=== PATIENT | female | born 1975 | race Caucasian/White ===

== ENCOUNTER 2023-07-26 15:31 | Emergency (ER) | payer OTHER, MEDICARE, SELFPAY ==
[2023-07-26 15:43] VITALS: BP 163/99
[2023-07-26 16:14] LABS: % Basophils 0.4 % (0-2); % Eosinophils 0.1 % (0-6); % Immature Granulocytes 0.5 % (0-0.5); % Lymphocytes 25.4 % (20.5-51.1); % Monocytes 7.3 % (1.7-9.3); % Neutrophils 66.3 % (42.2-75.2); Absolute Basophils 0.1 10^3/uL (0-0.2); Absolute Immature Granulocytes 0.1 10^3/uL (0-0.05); Absolute Lymphocytes 3.6 10^3/uL (1.2-3.4); Absolute Neutrophils 9.3 10^3/uL (1.4-6.5); Hematocrit 37.1 % (37.0-47.0); Hemoglobin 11.1 g/dL (12.0-16.0); Mean Corp Hgb Conc. 29.9 g/dL (33.0-37.0); Mean Corpuscular Hgb 20.2 pg (27.0-31.0); Mean Corpuscular Volume 67.6 fL (81.0-99.0); Mean Platelet Volume 9.2 fL (7.4-10.4); Nucleated Red Blood Cells % 0 %; Platelet Count 345 10^3/uL (130-400); Red Blood Cell Count 5.49 10^6/uL (4.20-5.40); Red Cell Dist. Width 18.1 % (11.5-14.5); White Blood Cell Count 14.1 10^3/uL (4.8-10.8)
[2023-07-26 16:30] LABS: Urine Albumin Negative (Neg - Trace); Urine Bilirubin 1+ (Negative); Urine Character Slightly Cloudy (Clear); Urine Color Yellow; Urine Glucose Negative (Negative); Urine Ketone Trace (Negative); Urine Leukocyte 1+ (Negative); Urine Nitrite Negative (Negative); Urine Occult Blood Negative (Negative); Urine Specific Gravity 1.025 (<1.030); Urine Urobilinogen Negative (Neg - 1+)
[2023-07-26 16:33] LABS: ALT (SGPT) 14 U/L (0-35); AST (SGOT) 16 U/L (14-36); Albumin 3.9 g/dl (3.5-5.0); Alkaline Phosphatase 111 U/L (38-126); Blood Urea Nitrogen 11 mg/dl (7-17); Calcium 9.2 mg/dl (8.4-10.2); Carbon Dioxide 29 mmol/L (22-30); Chloride 103 mmol/L (98-107); Glucose 84 mg/dl (70-99); Lipase 69 U/L (23-300); Potassium 4.3 mmol/L (3.5-5.1); Sodium 135 mmol/L (135-145); Total Bilirubin 0.4 mg/dl (0.2-1.3); Total Protein 6.8 g/dl (6.3-8.2); eGFR > 60.00
[2023-07-26 16:38] LABS: Urine Bacteria Many (Negative); Urine Mucus Moderate; Urine Red Blood Cell 0-2 /HPF (0-2)
[2023-07-26 17:28] LABS: HCG, Serum Qualitative Screen Negative
--- NOTE | 2023-07-26 17:51 | ED.GENMED ---
History of Present Illness
General
Chief Complaint: Abdominal Symptoms
Time Seen by Provider: 07/26/23 17:47
Travel History
Have you had any contact with someone who has COVID-19?: No
Do you have any symptoms of coronavirus? Fever > 100 degrees, chills, cough, shortness of breath, sore throat, loss of taste or smell, muscle aches, or headache?: No
History of Present Illness
History of Present Illness:
HPI: Patient presents with abdominal pain more so on the lower abdomen. 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 She did have some nausea that started earlier in the day. She did not have any pain yesterday. She has had
no vomiting, diarrhea, or constipation.
EXAM:
GENERAL: The patient appears moderately uncomfortable
HEENT: Moist oral mucosa
CARDIOVASCULAR: No murmurs, normal heart rate and rhythm, No chest wall tenderness
PULMONARY: No respiratory distress, breath sounds are clear and equal
ABDOMEN: Soft with no peritoneal signs, lower abdominal tenderness tenderness, elevated BMI
NEUROLOGIC: Excellent strength all extremities, no coordination deficits
PSYCHIATRIC: Appropriate mental status, normal insight and judgement
EXTREMITIES: Nontender, no edema, moves all extremities equally
SKIN: No rash, no lesions
ED COURSE:
6:10 PM: I initially evaluated patient
NUMBER AND COMPLEXITY OF PROBLEMS ADDRESSED AT THE ENCOUNTER
� Chronic conditions affecting care: Hyperlipidemia, has had LINE DECORATOR shunt in the past, hysterectomy
� Acute Exacerbation and/or Progression of Chronic Illness: This is an acute problem
� Differential Diagnosis includes: IBS, appendicitis, cholecystitis less likely, UTI/pyelonephritis over the patient has no flank pain or CVA tenderness
AMOUNT AND/OR COMPLEXITY OF DATA TO BE REVIEWED AND ANALYZED
� I performed an independent evaluation of and my interpretation is:
EKG:
CT: CT imaging shows no acute abnormality
X-rays:
Laboratory Studies: White count 14.1, hemoglobin 11.1, hCG negative, LFTs and lipase are normal, urinalysis shows 11-15 white cells per high-power field and many bacteria noted
Other:
� Review of other/old records: Last white count that was checked in January 2023 was normal
� Clinical information was obtained by an independent historian: None needed
� Prescriptions/Medications Considered but not given:
� Further testing considered but not performed:
RISK OF COMPLICATIONS AND/OR MORBIDITY OR MORTALITY OF PATIENT MANAGEMENT
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
� Discussion with other providers:
� Escalation of care including admission/observation vs risk of discharge considered: The patient appears to be moderately uncomfortable on initial evaluation, her white count is elevated at 14.1, questionably abnormal urinalysis
but she has no urinary symptoms, unclear etiology obtain CT imaging. CT imaging unremarkable. The patient was given Toradol which did not help and then was given 2 rounds of 1 mg of Dilaudid. She appears somewhat more comfortable. No clear
indication for admission to the hospital. We talked about the possibly of a urinary tract infection as cause of her symptoms however she has no dysuria. Since she does have leukocytosis with ongoing pain, will start Bactrim. She does have a
penicillin allergy.
Past History
Past History
ED Past Medical History: Asthma, COPD, GERD, HTN, Hypercholesterolemia, Psychiatric (anxiety and depression. 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 Tachycardia,
inappropriate tachycardia,) and Other (Chronic headache,)
ED Past Surgical History: Brain (shunt-removed) and Gynecological (Hysterectomy)
Patient has exhibited threatening behavior?: No
PSI?: No
Social History
Tobacco: Smoker
Alcohol: None
Drug: Marijuana
Personal:
Living: with family
Employment: Not employed
Family History
Family History: Other (Mother with uterine cancer)
Phy Exam
Physical Exam
Physical Exam:
See HPI
Course
Orders/Labs/Results
Orders:
Orders
07/26/23 15:47
Test Result ONCE
07/26/23 16:03
Complete Blood Count/With Diff Urgent
Comprehensive Metabolic Panel Urgent
HCG, Serum Qualitative Screen Urgent
Lipase Urgent
Urine Culture Reflexed from UA [Urinalysis Reflex To Culture] Urgent
Date Specimen was Collected: 07/26/23
Time Specimen was Collected: 15:46
Urine Microscopic Reflex Cult Urgent
Urine Culture Urgent
ELIE Source: U
Specimen Description:
Date Specimen was Collected: 07/26/23
Time Specimen was Collected: 15:46
07/26/23 18:12
CT Abd/pelvis W Iv Cont Urgent
Comment:
Reason For Exam: lower abd pain severe
0.9% Sodium Chloride 1000 ml [Nss] 1,000 ml IV BOLUS
Ketorolac [Toradol] 15 mg IV NOW STA
Ondansetron Injectable [Zofran] 4 mg IV NOW STA
07/26/23 18:51
HYDROmorphone [Dilaudid] 1 mg IV NOW STA
07/26/23 20:41
HYDROmorphone [Dilaudid] 1 mg .ROUTE .STK-MED ONE
07/26/23 20:48
HYDROmorphone [Dilaudid] 1 mg IV NOW STA
07/26/23 21:20
Sulfamethox./Trimethoprim Ds [Bactrim Ds 800 mg/160 mg] 1 tablet PO NOW STA
Abnormal Lab Results
07/26/23
16:03
WBC 14.1 H 10^3/uL
(4.8-10.8)
RBC 5.49 H 10^6/uL
(4.20-5.40)
Hgb 11.1 L g/dL
(12.0-16.0)
MCV 67.6 L fL
(81.0-99.0)
MCH 20.2 L pg
(27.0-31.0)
MCHC 29.9 L g/dL
(33.0-37.0)
RDW 18.1 H %
(11.5-14.5)
Abs Immat Gran (auto) 0.1 H 10^3/uL
(0-0.05)
Absolute Neuts (auto) 9.3 H 10^3/uL
(1.4-6.5)
Absolute Lymphs (auto) 3.6 H 10^3/uL
(1.2-3.4)
Absolute Monos (auto) 1.0 H 10^3/uL
(0.1-0.6)
Urine Ketones Trace A
(Negative)
Urine Bilirubin 1+ A
(Negative)
Leukocyte Esterase Rfl 1+ A
(Negative)
Urine WBC (Reflex) 11-15 A /HPF
(0-5)
Urine Bacteria (Reflex) Many A
(Negative)
07/26/23 16:03
07/26/23 16:03
Vital Signs
Initial and Last Documented VS:
Initial Vital Signs
Temp Pulse Resp BP Pulse Ox
98.2 F 100 20 163/99 98
07/26/23 15:43 07/26/23 15:43 07/26/23 15:43 07/26/23 15:43 07/26/23 15:43
Last Documented Vital Signs
Temp Pulse Resp BP Pulse Ox
98.5 F 96 20 121/80 94
07/26/23 20:44 07/26/23 20:44 07/26/23 20:44 07/26/23 20:44 07/26/23 20:53
*Critical Care Note
Total Time (30-74mins, 75-104mins- exclusive of procedures): Not Applicable
ED Attending Note
-
Portions of this chart may have been created with voice recognition software.� Occasional wrong word or��sound alike� substitutions may have occurred due to the inherent limitations of voice recognition software.
Discharge Plan
Departure
Patient Disposition: Home (Routine Discharge)
Date of Disposition: 07/26/23
Time of Disposition: 21:19
Patient with high blood pressure during this ER visit?: Yes
Discharge Problem:
Abdominal pain
Prescriptions:
New
sulfamethoxazole-trimethoprim [Bactrim DS] 800-160 mg tablet
1 tab PO BID Qty: 14 0RF
No Action
omeprazole 40 MG capsule,delayed release(DR/EC)
40 mg PO DAILY Qty: 0 0RF
Rx Instructions:
One capsule by mouth once daily.
metoprolol succinate 25 MG tablet extended release 24 hr
25 mg PO DAILY@1200 Qty: 0 0RF
Rx Instructions:
One tab by mouth once daily.
duloxetine 60 MG capsule,delayed release(DR/EC)
60 mg PO BID Qty: 0 0RF
Rx Instructions:
One capsule by mouth twice daily.
Vraylar 1.5 MG capsule
3 mg PO DAILY
clonazepam 0.5 MG tablet
0.5 mg PO BIDPRN PRN (Reason: Anxiety)
Patient Comments:
lamotrigine [Lamictal] 150 MG tablet
150 mg PO DAILY
benztropine 1 MG tablet
2 mg PO DAILY
metaxalone [Skelaxin] 800 MG tablet
800 mg PO TIDPRN PRN (Reason: pain) Qty: 10 0RF
fluticasone propionate [Flovent HFA] 1 PUFF HFA aerosol inhaler
2 puff inhalation R BID Qty: 1 0RF
albuterol sulfate 90 mcg/actuation aerosol powdr breath activated
2 inh inhalation Q6H PRN (Reason: shortness of breath or wheezing) Qty: 1 0RF
prednisone 10 mg Tablet
See Rx Instructions .ROUTE .COMPLEX Qty: 30 0RF
Rx Instructions:
Take By Mouth:
40 mg daily x3 days, 30 mg daily x3 days,
20 mg daily x3 days, 10 mg daily x3 days.
gabapentin
100 mg PO TID
Referrals:
Cammie Canas MD [Family Provider] -
Interventions
Interventions:
*Risk Screen - Suicide Last Done: 07/26/23 15:43
*General Assessment Last Done: 07/26/23 15:43
*Neglect/Abuse Screening Last Done: 07/26/23 15:43
ED- Fall Risk Assessment Last Done: 07/26/23 19:00
*ED COVID-19 Vaccine History Last Done: 07/26/23 19:00
VB-[id number] Assessment Last Done: 07/26/23 19:14
[2023-07-26] MEDS: TORADOL 15 MG IV (18:32)
[2023-07-26] MEDS: ZOFRAN 4 MG IV (18:33)
[2023-07-26] MEDS: NSS 1000 IV (18:33)
[2023-07-26] MEDS: DILAUDID 1 MG IV ×2 (19:01→20:48)
[2023-07-26 19:14] VITALS: BP 116/65; BMI 46.6
[2023-07-26 20:09] VITALS: BP 108/68
[2023-07-26 20:44] VITALS: BP 121/80
[2023-07-26] MEDS: BACTRIM DS 800 MG/160 MG 1 TABLET PO (21:52)
[2023-07-26 21:54] VITALS: BP 114/60
== END 2023-07-26 21:00 | disposition home or self-care (01) ==
LOC: EMR 15:31
PROVIDERS: Emergency Medicine; EMERGENCY PHYSICIAN Emergency Medicine; FAMILY PHYSICIAN Family Medicine
DX: R10.9 Unspecified abdominal pain (principal); J44.89 Other specified chronic obstructive pulmonary disease; K21.9 Gastro-esophageal reflux disease without esophagitis; I10 Essential (primary) hypertension; E78.00 Pure hypercholesterolemia, unspecified; F41.9 Anxiety disorder, unspecified; F32.A Depression, unspecified; G93.2 Benign intracranial hypertension; F17.200 Nicotine dependence, unspecified, uncomplicated; Z88.0 Allergy status to penicillin; Z91.51 Personal history of suicidal behavior; Z98.2 Presence of cerebrospinal fluid drainage device
CPT/HCPCS: 99284; 96374; 96375; 96376; 96361; 74177; 80053; 81003; 81015; 83690; 84703; 85025; 87086; Q9967

== ENCOUNTER 2023-08-05 13:14 | Emergency (ER) | payer OTHER, MEDICARE, SELFPAY ==
[2023-08-05 13:26] VITALS: BP 128/92
[2023-08-05 13:55] LABS: % Basophils 0.3 % (0-2); % Eosinophils 0.1 % (0-6); % Immature Granulocytes 0.5 % (0-0.5); % Lymphocytes 14.6 % (20.5-51.1); % Monocytes 4.1 % (1.7-9.3); % Neutrophils 80.4 % (42.2-75.2); Absolute Immature Granulocytes 0.1 10^3/uL (0-0.05); Absolute Lymphocytes 1.8 10^3/uL (1.2-3.4); Absolute Monocytes 0.5 10^3/uL (0.1-0.6); Absolute Neutrophils 9.7 10^3/uL (1.4-6.5); Hematocrit 36.7 % (37.0-47.0); Hemoglobin 10.9 g/dL (12.0-16.0); Mean Corp Hgb Conc. 29.7 g/dL (33.0-37.0); Mean Corpuscular Volume 67.2 fL (81.0-99.0); Mean Platelet Volume 9.2 fL (7.4-10.4); Nucleated Red Blood Cells % 0 %; Platelet Count 362 10^3/uL (130-400); Red Blood Cell Count 5.46 10^6/uL (4.20-5.40); Red Cell Dist. Width 19.4 % (11.5-14.5); White Blood Cell Count 12.1 10^3/uL (4.8-10.8)
[2023-08-05 13:56] LABS: Urine Albumin Negative (Neg - Trace); Urine Bilirubin Negative (Negative); Urine Character Clear (Clear); Urine Color Yellow; Urine Glucose Negative (Negative); Urine Ketone Negative (Negative); Urine Leukocyte Negative (Negative); Urine Nitrite Negative (Negative); Urine Occult Blood Negative (Negative); Urine Specific Gravity 1.015 (<1.030); Urine Urobilinogen Negative (Neg - 1+)
[2023-08-05 14:08] LABS: ALT (SGPT) 19 U/L (0-35); AST (SGOT) 18 U/L (14-36); Albumin 4.1 g/dl (3.5-5.0); Alkaline Phosphatase 103 U/L (38-126); Blood Urea Nitrogen 11 mg/dl (7-17); Calcium 9.5 mg/dl (8.4-10.2); Carbon Dioxide 25 mmol/L (22-30); Chloride 105 mmol/L (98-107); Glucose 164 mg/dl (70-99); Potassium 4.2 mmol/L (3.5-5.1); Sodium 136 mmol/L (135-145); Total Bilirubin 0.3 mg/dl (0.2-1.3); Total Protein 6.8 g/dl (6.3-8.2); eGFR > 60.00
--- NOTE | 2023-08-05 16:17 | ED.GENMED ---
History of Present Illness
General
Chief Complaint: Back Pain
Source: patient
Exam Limitations: none
Time Seen by Provider: 08/05/23 16:16
Nursing documentation reviewed up to this point in time: agreed with
Travel History
Have you had any contact with someone who has COVID-19?: No
Do you have any symptoms of coronavirus? Fever > 100 degrees, chills, cough, shortness of breath, sore throat, loss of taste or smell, muscle aches, or headache?: No
History of Present Illness
History of Present Illness:
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 No recollection of overuse or injury. It is worse with movement. She took ibuprofen, Tylenol and medical marijuana with
little relief. She states the pain is constant and is 8/10. She states she has been vomiting also due to the pain. Her last emesis was 2 hours ago. She still feels nauseous. She denies UTI symptoms, denies constipation.
Past History
Past History
ED Past Medical History: Asthma, COPD, GERD, HTN, Hypercholesterolemia, Psychiatric (anxiety and depression. 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 Tachycardia,
inappropriate tachycardia,) and Other (Chronic headache,)
ED Past Surgical History: Brain (shunt-removed) and Gynecological (Hysterectomy)
Patient has exhibited threatening behavior?: No
PSI?: No
Social History
Tobacco: Smoker
Alcohol: None
Drug: Marijuana
Personal:
Living: with family
Employment: Not employed
Family History
Family History: Other (Mother with uterine cancer)
Review of Systems
Review of Systems
Allergies reviewed?: Yes
All Other Systems: ROS reviewed and negative except as documented in HPI and ROS
Constitutional: Denies fever
Respiratory: Denies trouble breathing
Cardiac: Denies chest pain
ABD/GI: Reports nausea; Denies abdominal pain, diarrhea or constipated
: Denies dysuria, frequency, flank pain, difficulty voiding, urgency, bleeding or dark urine
Musculoskeletal: Reports other (Pain right upper mid to lateral buttock area); Denies edema
Skin: Reports no symptoms
Neurological: Reports no symptoms
Phy Exam
Physical Exam
Physical Exam:
GENERAL: No acute distress. A&Ox3.
CONSTITUTIONAL: Afebrile.
RESPIRATORY: Regular respirations, nonlabored, lungs clear.
CARDIOVASCULAR: Regular rate and rhythm, no murmurs, no rubs.
GI: Soft, obese, nontender, normal BS
MUSCULOSKELETAL: Palpation over right upper mid to lateral buttock immediately reproduces her pain. Pain is worse with right straight leg raise and movement such as sitting forward swinging her legs over the side of the stretcher to sit on the edge
of the stretcher. Moves with ease. Well perfused.
SKIN: Warm, dry, pink
PSYCH: Normal mood and affect. Well kept, interactive and appropriate
NEUROLOGIC: Awake, alert and oriented. No focal neurological deficits
Course
Orders/Labs/Results
Orders:
Orders
08/05/23 13:41
Complete Blood Count/With Diff Urgent
Comprehensive Metabolic Panel Urgent
TSH Urgent
Comment: ADD ON
Urinalysis Reflex To Culture Urgent
Date Specimen was Collected: 08/05/23
Time Specimen was Collected: 13:28
08/05/23 16:35
Ondansetron Orally Disint [Zofran Odt (Orally Disintegrating)] 4 mg PO NOW STA
Abnormal Lab Results
08/05/23
13:41
WBC 12.1 H 10^3/uL
(4.8-10.8)
RBC 5.46 H 10^6/uL
(4.20-5.40)
Hgb 10.9 L g/dL
(12.0-16.0)
Hct 36.7 L %
(37.0-47.0)
MCV 67.2 L fL
(81.0-99.0)
MCH 20.0 L pg
(27.0-31.0)
MCHC 29.7 L g/dL
(33.0-37.0)
RDW 19.4 H %
(11.5-14.5)
Abs Immat Gran (auto) 0.1 H 10^3/uL
(0-0.05)
Absolute Neuts (auto) 9.7 H 10^3/uL
(1.4-6.5)
Neutrophils % 80.4 H %
(42.2-75.2)
Lymphocytes % 14.6 L %
(20.5-51.1)
Glucose 164 H mg/dl
(70-99)
08/05/23 13:41
08/05/23 13:41
Vital Signs
Initial and Last Documented VS:
Initial Vital Signs
Temp Pulse Resp BP Pulse Ox
98.0 F 105 16 128/92 98
08/05/23 13:26 08/05/23 13:26 08/05/23 13:08/05/23 13:08/05/23 13:26
Last Documented Vital Signs
Temp Pulse Resp BP Pulse Ox
98.0 F 105 16 128/92 98
08/05/23 13:26 08/05/23 13:26 08/05/23 13:26 08/05/23 13:08/05/23 13:26
MDM/Problems Addressed
Differential Diagnosis Includes:
Back muscle strain, sciatica, sacroiliitis
MDM/Problems Addressed:
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 No recollection of overuse or injury. It is worse with movement. She took ibuprofen, Tylenol and medical marijuana with
little relief. She states the pain is constant and is 8/10. She states she has been vomiting also due to the pain. Her last emesis was 2 hours ago. She still feels nauseous. She denies UTI symptoms, denies constipation.
There is no direct trauma, no indication for imaging.
Pain is immediately reproduced with pressure over the upper mid to right buttocks
This is clearly musculoskeletal pain. Prescription for cyclobenzaprine sent to her pharmacy.
Reviewed previous EKGs, no long QT, will send a short regimen of Zofran to use as needed for nausea.
Note given for off work tomorrow.
Patient ambulated out with normal gait upon discharge
*Critical Care Note
Total Time (30-74mins, 75-104mins- exclusive of procedures): Not Applicable
ED Attending Note
-
Portions of this chart may have been created with voice recognition software.� Occasional wrong word or��sound alike� substitutions may have occurred due to the inherent limitations of voice recognition software.
Discharge Plan
Departure
Patient Disposition: Home (Routine Discharge)
Date of Disposition: 08/05/23
Time of Disposition: 16:39
Patient with high blood pressure during this ER visit?: No
Condition: Good
Discharge Problem:
Acute low back pain
Instructions: Low Back Pain (DC), Sacroiliac Joint Pain (DC)
Prescriptions:
New
cyclobenzaprine 10 mg tablet
10 mg PO TID PRN (Reason: low back/buttock pain) Qty: 30 0RF
ondansetron 4 mg tablet,disintegrating
4 mg PO Q8H PRN (Reason: nausea and vomiting) 5 Days Qty: 10 0RF
No Action
omeprazole 40 MG capsule,delayed release(DR/EC)
40 mg PO DAILY Qty: 0 0RF
Rx Instructions:
One capsule by mouth once daily.
metoprolol succinate 25 MG tablet extended release 24 hr
25 mg PO DAILY@1200 Qty: 0 0RF
Rx Instructions:
One tab by mouth once daily.
duloxetine 60 MG capsule,delayed release(DR/EC)
60 mg PO BID Qty: 0 0RF
Rx Instructions:
One capsule by mouth twice daily.
Vraylar 1.5 MG capsule
3 mg PO DAILY
clonazepam 0.5 MG tablet
0.5 mg PO BIDPRN PRN (Reason: Anxiety)
Patient Comments:
lamotrigine [Lamictal] 150 MG tablet
150 mg PO DAILY
benztropine 1 MG tablet
2 mg PO DAILY
metaxalone [Skelaxin] 800 MG tablet
800 mg PO TIDPRN PRN (Reason: pain) Qty: 10 0RF
fluticasone propionate [Flovent HFA] 1 PUFF HFA aerosol inhaler
2 puff inhalation R BID Qty: 1 0RF
albuterol sulfate 90 mcg/actuation aerosol powdr breath activated
2 inh inhalation Q6H PRN (Reason: shortness of breath or wheezing) Qty: 1 0RF
prednisone 10 mg Tablet
See Rx Instructions .ROUTE .COMPLEX Qty: 30 0RF
Rx Instructions:
Take By Mouth:
40 mg daily x3 days, 30 mg daily x3 days,
20 mg daily x3 days, 10 mg daily x3 days.
gabapentin
100 mg PO TID
sulfamethoxazole-trimethoprim [Bactrim DS] 800-160 mg tablet
1 tab PO BID Qty: 14 0RF
Referrals:
Cammie Canas MD [Family Provider] - As needed
Stand Alone Forms: Return to Work
Activity Restrictions/Additional Instructions:
As we discussed, you may have pulled a muscle in your lower back or strained the sacroiliac joint in your pelvis. Tylenol or ibuprofen as needed for pain. Use the Flexeril (cyclobenzaprine) as needed for pain, muscle spasms. This can make you
sleepy and slow the reflexes so do not drive or operate any machinery within 8 hours of taking it.
I sent a prescription for the Flexeril and also for Zofran to use as needed for nausea to your pharmacy.
See your doctor in 3 to 4 days if no improvement in your symptoms
Interventions
Interventions:
*Risk Screen - Suicide Last Done: 08/05/23 17:16
*General Assessment Last Done: 08/05/23 16:44
*Neglect/Abuse Screening Last Done: 08/05/23 17:16
ED- Fall Risk Assessment Last Done: 08/05/23 17:16
*ED COVID-19 Vaccine History Last Done: 08/05/23 13:26
*Nursing Disposition Last Done: 08/05/23 17:16
ED-Musculoskeletal Assessment Last Done: 08/05/23 16:45
Discharge Date and Time
Discharge Date/Time: 08/05/23 17:17
[2023-08-05] MEDS: ZOFRAN ODT (ORALLY DISINTEGRATING) 4 MG PO (16:43)
[2023-08-05 16:44] VITALS: BMI 46.2
[2023-08-05 17:52] LABS: TSH 0.97 uIU/ml (0.47-4.68)
== END 2023-08-05 17:17 | disposition home or self-care (01) ==
LOC: EMR 13:14
PROVIDERS: Emergency Medicine; EMERGENCY PHYSICIAN Emergency Medicine; FAMILY PHYSICIAN Family Medicine
DX: M54.50 Low back pain, unspecified (principal); F17.200 Nicotine dependence, unspecified, uncomplicated; E78.00 Pure hypercholesterolemia, unspecified; J44.89 Other specified chronic obstructive pulmonary disease; K21.9 Gastro-esophageal reflux disease without esophagitis; F41.9 Anxiety disorder, unspecified; F32.A Depression, unspecified; I10 Essential (primary) hypertension
CPT/HCPCS: 99283; 80053; 81003; 84443; 85025

== ENCOUNTER 2023-08-15 07:55 | Emergency (ER) | payer OTHER, MEDICARE, SELFPAY ==
[2023-08-15 08:03] VITALS: BP 159/96
--- NOTE | 2023-08-15 08:50 | ED.GENMED ---
History of Present Illness
General
Chief Complaint: Abdominal Symptoms
Source: patient
Exam Limitations: none
Time Seen by Provider: 08/15/23 08:35
Nursing documentation reviewed up to this point in time: agreed with
Travel History
Have you had any contact with someone who has COVID-19?: No
Do you have any symptoms of coronavirus? Fever > 100 degrees, chills, cough, shortness of breath, sore throat, loss of taste or smell, muscle aches, or headache?: No
History of Present Illness
History of Present Illness:
47-year-old female presents emerged from complaining of epigastric pain, since 10 PM last night. She states she had vomited multiple times. She denies any similar pain to this.
Past History
Past History
ED Past Medical History: Asthma, COPD, GERD, HTN, Hypercholesterolemia, Psychiatric (anxiety and depression. 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 Tachycardia,
inappropriate tachycardia,) and Other (Chronic headache,)
ED Past Surgical History: Brain (shunt-removed) and Gynecological (Hysterectomy)
Patient has exhibited threatening behavior?: No
PSI?: No
Social History
Tobacco: Smoker
Alcohol: None
Drug: Marijuana
Personal:
Living: with family
Employment: Not employed
Family History
Family History: Other (Mother with uterine cancer)
Review of Systems
Review of Systems
Allergies reviewed?: Yes
All Other Systems: Not applicable
Constitutional: Reports no symptoms
EENT: Reports no symptoms
Respiratory: Reports no symptoms
Cardiac: Reports no symptoms
ABD/GI: Reports abdominal pain, nausea and vomiting; Denies diarrhea, bloody stools or black stools
: Reports no symptoms
Musculoskeletal: Reports no symptoms
Skin: Reports no symptoms
Neurological: Reports no symptoms
Endocrine: Reports no symptoms
Hematologic/Lymphatic: Reports no symptoms
Psychiatric: Reports no symptoms
Phy Exam
Physical Exam
Physical Exam:
Physical Exam
General: no apparent distress, not acutely ill
Neck: supple. no meningeal signs. normal posterior pharynx
Heart: s1/s2 regular rate and rhythm, no murmur. equal radial
pulses.
HEENT: Pupils equal round reactive to light, EOMI
Lungs: no acute respiratory distress. clear bilaterally
Abdomen: normal bowel sounds. Diffuse tenderness, no rebound or guarding. No CVAT
Neuro: alert and oriented. no focal neurological deficits cranial nerves II through XII intact
Skin: no rash
Psychiatric: well kept. interactive and cooperative
Extremities: no edema. no calf tenderness. negative homans. good distal pulses
Course
Orders/Labs/Results
Orders:
Orders
08/15/23 08:48
IV Insert/Care/Rem.- Treatment PRN
0.9% Sodium Chloride 1000 ml [Nss] 1,000 ml IV BOLUS
Ondansetron Injectable [Zofran] 4 mg IV NOW STA
08/15/23 08:49
Test Result ONCE
08/15/23 09:00
Complete Blood Count/With Diff Urgent
Comprehensive Metabolic Panel Urgent
HCG, Serum Qualitative Screen Urgent
Comment: HCG QUALITATIVE SERUM ADDED ON BY FLOOR 9:45AM 08-15-23
Lipase Urgent
Urinalysis Reflex To Culture Urgent
Date Specimen was Collected: 08/15/23
Time Specimen was Collected: 08:59
08/15/23 09:02
Ketorolac [Toradol] 15 mg IV NOW STA
08/15/23 09:45
Add On- LAB Urgent
Tests Added?: HCG qualitative serum
08/15/23 09:54
Dicyclomine [Bentyl] 20 mg PO NOW STA
08/15/23 10:00
Capsaicin [Zostrix 0.025% Cream] See Dose Instructions TOPICAL STAT STA
08/15/23 10:30
CT Abd/pelvis W Iv Cont Urgent
Comment:
Reason For Exam: diffuse abdominal pain, vomiting
08/15/23 12:08
HYDROmorphone [Dilaudid] 1 mg IV NOW STA
Abnormal Lab Results
08/15/23
09:00
Hgb 10.6 L g/dL
(12.0-16.0)
Hct 35.9 L %
(37.0-47.0)
MCV 67.7 L fL
(81.0-99.0)
MCH 20.0 L pg
(27.0-31.0)
MCHC 29.5 L g/dL
(33.0-37.0)
RDW 19.4 H %
(11.5-14.5)
Abs Immat Gran (auto) 0.1 H 10^3/uL
(0-0.05)
Absolute Neuts (auto) 7.3 H 10^3/uL
(1.4-6.5)
Lymphocytes % 19.2 L %
(20.5-51.1)
Creatinine 0.5 L mg/dL
(0.6-1.0)
Glucose 114 H mg/dl
(70-99)
08/15/23 09:00
08/15/23 09:00
Vital Signs
Initial and Last Documented VS:
Initial Vital Signs
Temp Pulse Resp BP Pulse Ox
99.5 F 111 18 159/96 98
08/15/23 08:03 08/15/23 08:03 08/15/23 08:03 08/15/23 08:03 08/15/23 08:03
Last Documented Vital Signs
Temp Pulse Resp BP Pulse Ox
99.5 F 92 18 128/84 98
08/15/23 08:03 08/15/23 10:00 08/15/23 10:00 08/15/23 12:29 08/15/23 08:03
MDM/Problems Addressed
Differential Diagnosis Includes:
Bowel obstruction, diverticulitis, appendicitis
MDM/Problems Addressed:
47-year-old female with abdominal pain, nausea vomiting. No acute findings on CT abdomen pelvis. Symptoms possibly related to marijuana use. Stable for discharge.
Chronic conditions affecting care: Previous abdomnial surgery (Hysterectomy)
Acute Exacerbation and/or Progression of Chronic Illness:
Chronic marijuana use
*Radiology
Radiology exam reviewed: radiology read reviewed (CT abdomen pelvis no acute findings)
*Pulse Oximetry
Patient hypoxic: no
*EKG
Interpreted by ED Provider?: NA
*Candlemaker Interpretation
Rate: Candlemaker- N/A
*Critical Care Note
Total Time (30-74mins, 75-104mins- exclusive of procedures): Not Applicable
Data Reviewed
Review of Other/Old Records Reveals: Labs
Patient Management
Social determinants of health affecting care: Living situation and Strong social support
Escalation/DeEscalation of care consider admission/obs:
Admit not indicated
ED Attending Note
-
Portions of this chart may have been created with voice recognition software.� Occasional wrong word or��sound alike� substitutions may have occurred due to the inherent limitations of voice recognition software.
Discharge Plan
Departure
Patient Disposition: Home (Routine Discharge)
Date of Disposition: 08/15/23
Time of Disposition: 13:36
Patient with high blood pressure during this ER visit?: Yes
Condition: Good
Discharge Problem:
Abdominal pain, Nausea and vomiting
Instructions: Nausea and Vomiting, Adult (DC), Abdominal Pain, BLOOD PRESSURE
Prescriptions:
New
ondansetron 4 mg tablet,disintegrating
4 mg PO Q8H PRN (Reason: nausea and vomiting) 2 Days Qty: 6 0RF
dicyclomine 10 mg capsule
10 mg PO QID PRN (Reason: abdominal pain) Qty: 30 0RF
No Action
omeprazole 40 MG capsule,delayed release(DR/EC)
40 mg PO DAILY Qty: 0 0RF
Rx Instructions:
One capsule by mouth once daily.
metoprolol succinate 25 MG tablet extended release 24 hr
25 mg PO DAILY@1200 Qty: 0 0RF
Rx Instructions:
One tab by mouth once daily.
duloxetine 60 MG capsule,delayed release(DR/EC)
60 mg PO BID Qty: 0 0RF
Rx Instructions:
One capsule by mouth twice daily.
Vraylar 1.5 MG capsule
3 mg PO DAILY
clonazepam 0.5 MG tablet
0.5 mg PO BIDPRN PRN (Reason: Anxiety)
Patient Comments:
lamotrigine [Lamictal] 150 MG tablet
150 mg PO DAILY
benztropine 1 MG tablet
2 mg PO DAILY
metaxalone [Skelaxin] 800 MG tablet
800 mg PO TIDPRN PRN (Reason: pain) Qty: 10 0RF
fluticasone propionate [Flovent HFA] 1 PUFF HFA aerosol inhaler
2 puff inhalation R BID Qty: 1 0RF
albuterol sulfate 90 mcg/actuation aerosol powdr breath activated
2 inh inhalation Q6H PRN (Reason: shortness of breath or wheezing) Qty: 1 0RF
prednisone 10 mg Tablet
See Rx Instructions .ROUTE .COMPLEX Qty: 30 0RF
Rx Instructions:
Take By Mouth:
40 mg daily x3 days, 30 mg daily x3 days,
20 mg daily x3 days, 10 mg daily x3 days.
gabapentin
100 mg PO TID
sulfamethoxazole-trimethoprim [Bactrim DS] 800-160 mg tablet
1 tab PO BID Qty: 14 0RF
cyclobenzaprine 10 mg tablet
10 mg PO TID PRN (Reason: low back/buttock pain) Qty: 30 0RF
ondansetron 4 mg tablet,disintegrating
4 mg PO Q8H PRN (Reason: nausea and vomiting) 5 Days Qty: 10 0RF
Referrals:
Cammie Canas MD [Family Provider] -
Isidra Rossi DO [Active] - Call in 1-3 days for appt
Interventions
Interventions:
*Risk Screen - Suicide Last Done: 08/15/23 09:09
*General Assessment Last Done: 08/15/23 09:09
*Neglect/Abuse Screening Last Done: 08/15/23 09:09
ED- Fall Risk Assessment Last Done: 08/15/23 09:08
*ED COVID-19 Vaccine History Last Done: 08/15/23 08:08
BH-[id number] Assessment Last Done: 08/15/23 09:08
[2023-08-15] MEDS: ZOFRAN 4 MG IV (08:57)
[2023-08-15] MEDS: NSS 1000 IV (08:57)
[2023-08-15 09:01] VITALS: BP 132/90
[2023-08-15] MEDS: TORADOL 15 MG IV (09:06)
[2023-08-15 09:12] LABS: % Basophils 0.5 % (0-2); % Eosinophils 0.7 % (0-6); % Immature Granulocytes 0.5 % (0-0.5); % Lymphocytes 19.2 % (20.5-51.1); % Monocytes 6.4 % (1.7-9.3); % Neutrophils 72.7 % (42.2-75.2); Absolute Basophils 0.1 10^3/uL (0-0.2); Absolute Eosinophils 0.1 10^3/uL (0-0.7); Absolute Immature Granulocytes 0.1 10^3/uL (0-0.05); Absolute Lymphocytes 1.9 10^3/uL (1.2-3.4); Absolute Monocytes 0.6 10^3/uL (0.1-0.6); Absolute Neutrophils 7.3 10^3/uL (1.4-6.5); Hematocrit 35.9 % (37.0-47.0); Hemoglobin 10.6 g/dL (12.0-16.0); Mean Corp Hgb Conc. 29.5 g/dL (33.0-37.0); Mean Corpuscular Volume 67.7 fL (81.0-99.0); Mean Platelet Volume 9.3 fL (7.4-10.4); Nucleated Red Blood Cells % 0 %; Platelet Count 328 10^3/uL (130-400); Red Cell Dist. Width 19.4 % (11.5-14.5)
[2023-08-15 09:21] LABS: Urine Albumin Negative (Neg - Trace); Urine Bilirubin Negative (Negative); Urine Character Clear (Clear); Urine Color Yellow; Urine Glucose Negative (Negative); Urine Ketone Negative (Negative); Urine Leukocyte Negative (Negative); Urine Nitrite Negative (Negative); Urine Occult Blood Negative (Negative); Urine Urobilinogen Negative (Neg - 1+)
[2023-08-15 09:25] LABS: ALT (SGPT) 20 U/L (0-35); AST (SGOT) 19 U/L (14-36); Albumin 3.9 g/dl (3.5-5.0); Alkaline Phosphatase 105 U/L (38-126); Blood Urea Nitrogen 9 mg/dl (7-17); Calcium 9.3 mg/dl (8.4-10.2); Carbon Dioxide 27 mmol/L (22-30); Chloride 105 mmol/L (98-107); Glucose 114 mg/dl (70-99); Lipase 51 U/L (23-300); Potassium 4.4 mmol/L (3.5-5.1); Sodium 137 mmol/L (135-145); Total Bilirubin 0.3 mg/dl (0.2-1.3); Total Protein 6.7 g/dl (6.3-8.2); eGFR > 60.00
[2023-08-15] MEDS: BENTYL 20 MG PO (09:59)
[2023-08-15 10:00] VITALS: BP 122/64
[2023-08-15] MEDS: ZOSTRIX 0.025% CREAM 1 APPLIC TOPICAL (10:20)
[2023-08-15 10:37] LABS: HCG, Serum Qualitative Screen Negative
[2023-08-15 11:00] VITALS: BP 137/78
[2023-08-15 12:29] VITALS: BP 128/84
[2023-08-15] MEDS: DILAUDID 1 MG IV (12:39)
== END 2023-08-15 13:57 | disposition home or self-care (01) ==
LOC: EMR 07:55
PROVIDERS: EMERGENCY PHYSICIAN Emergency Medicine; FAMILY PHYSICIAN Family Medicine
DX: R10.13 Epigastric pain (principal); J44.89 Other specified chronic obstructive pulmonary disease; K21.9 Gastro-esophageal reflux disease without esophagitis; I10 Essential (primary) hypertension; E78.00 Pure hypercholesterolemia, unspecified; F41.9 Anxiety disorder, unspecified; F32.A Depression, unspecified; F17.200 Nicotine dependence, unspecified, uncomplicated; Z91.51 Personal history of suicidal behavior
CPT/HCPCS: 99284; 96374; 96375; 96361; 74177; 80053; 81003; 83690; 84703; 85025; Q9967

== ENCOUNTER 2023-12-10 20:00 | Emergency (ER) | payer OTHER, MEDICARE, SELFPAY ==
[2023-12-10 20:02] VITALS: BP 133/83
--- NOTE | 2023-12-10 22:08 | ED.GENMED ---
History of Present Illness
General
Chief Complaint: Skin Problem
Source: patient
Exam Limitations: none
Time Seen by Provider: 12/10/23 21:47
Nursing documentation reviewed up to this point in time: agreed with
History of Present Illness
History of Present Illness:
48-year-old female with a past medical history as documented who presents to the emergency room for evaluation of redness and pain on the abdominal wall. Patient reports onset of symptoms a few days ago and they have been constant and worsening
since then. She reports that she has burning pain and redness essentially underneath her abdominal pannus. She denies any fevers or chills. She denies any vomiting, diarrhea or any other complaints.
Past History
Past History
ED Past Medical History: Asthma, COPD, GERD, HTN, Hypercholesterolemia, Psychiatric (anxiety and depression. 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 Tachycardia,
inappropriate tachycardia,) and Other (Chronic headache,)
ED Past Surgical History: Brain (shunt-removed) and Gynecological (Hysterectomy)
Patient has exhibited threatening behavior?: No
PSI?: No
Social History
Tobacco: Smoker
Alcohol: None
Drug: Marijuana
Personal:
Living: with family
Employment: Not employed
Family History
Family History: Other (Mother with uterine cancer)
Review of Systems
Review of Systems
All Other Systems: ROS reviewed and negative except as documented in HPI and ROS
Constitutional: Denies fever
ABD/GI: Denies abdominal pain, nausea, vomiting or diarrhea
Skin: Reports rash
Phy Exam
Physical Exam
Physical Exam:
General: Well appearing and non-toxic
HEENT: protecting airway
Neck: appears supple
CV: No evidence of cyanosis
Resp: No accessory muscle use
Abd: Obese, soft, nontender to deep palpation
Extremities: No deformities
Neuro: Alert
Psych: Normal affect
Skin: Underneath her large abdominal pannus patient has moist erythematous skin which is warm and tender, no induration, no fluctuance or collections, no bulla or pustules, no sloughing of the skin, no drainage or discharge
Scores
Heart Failure Risk
Heart Failure Risk Score: Not Applicable
Heart Score for Chest Pain Patients
STEMI patient?: Not applicable
Withdrawal Assessment of Alcohol
Withdrawal Assessment Completed?: Not applicable
Course
Orders/Labs/Results
Orders:
Orders
12/10/23 22:07
Cephalexin Monohydrate [Keflex] 500 mg PO NOW STA
Ketoconazole [Nizoral 2% Cream] See Dose Instructions TOPICAL ONCE ONE
Vital Signs
Initial and Last Documented VS:
Initial Vital Signs
Temp Pulse Resp BP Pulse Ox
37.3 C 110 22 133/83 99
12/10/23 20:02 12/10/23 20:02 12/10/23 20:02 12/10/23 20:02 12/10/23 20:02
Last Documented Vital Signs
Temp Pulse Resp BP Pulse Ox
37.3 C 110 22 133/83 99
12/10/23 20:02 12/10/23 20:02 12/10/23 20:02 12/10/23 20:02 12/10/23 20:02
MDM/Problems Addressed
Differential Diagnosis Includes:
Cellulitis, intertrigo, tinea
MDM/Problems Addressed:
48-year-old female presents with burning pain and redness underneath her abdominal pannus. Noticed it over the past few days. Exam as above. Exam is consistent with intertrigo. Will prescribe topical ketoconazole cream. Spoke to her about
keeping the area clean and dry, application of drying powders and ultimately weight loss. Will cover with antibiotics for cellulitis as well although lower suspicion that she has an acute cellulitis. Follow-up with PCP as an outpatient. Patient
comfortable with this plan. Spoke about return precautions all questions answered.
Chronic conditions affecting care:
Obesity
*Pulse Oximetry
Patient hypoxic: no
*Critical Care Note
Total Time (30-74mins, 75-104mins- exclusive of procedures): Not Applicable
Data Reviewed
Source: patient
ED Attending Note
-
Portions of this chart may have been created with voice recognition software.� Occasional wrong word or��sound alike� substitutions may have occurred due to the inherent limitations of voice recognition software.
Discharge Plan
Departure
Patient Disposition: Home (Routine Discharge)
Date of Disposition: 12/10/23
Time of Disposition: 21:57
Patient with high blood pressure during this ER visit?: No
Discharge Problem:
Intertrigo
Instructions: Intertrigo (DC)
Prescriptions:
New
ketoconazole 2 % cream
1 applic topical DAILY Qty: 60 0RF
cephalexin 500 mg tablet
500 mg PO QID 7 Days Qty: 28 0RF
No Action
omeprazole 40 MG capsule,delayed release(DR/EC)
40 mg PO DAILY Qty: 0 0RF
Rx Instructions:
One capsule by mouth once daily.
metoprolol succinate 25 MG tablet extended release 24 hr
25 mg PO DAILY@1200 Qty: 0 0RF
Rx Instructions:
One tab by mouth once daily.
duloxetine 60 MG capsule,delayed release(DR/EC)
60 mg PO BID Qty: 0 0RF
Rx Instructions:
One capsule by mouth twice daily.
Vraylar 1.5 MG capsule
3 mg PO DAILY
clonazepam 0.5 MG tablet
0.5 mg PO BIDPRN PRN (Reason: Anxiety)
Patient Comments:
lamotrigine [Lamictal] 150 MG tablet
150 mg PO DAILY
benztropine 1 MG tablet
2 mg PO DAILY
metaxalone [Skelaxin] 800 MG tablet
800 mg PO TIDPRN PRN (Reason: pain) Qty: 10 0RF
fluticasone propionate [Flovent HFA] 1 PUFF HFA aerosol inhaler
2 puff inhalation R BID Qty: 1 0RF
albuterol sulfate 90 mcg/actuation aerosol powdr breath activated
2 inh inhalation Q6H PRN (Reason: shortness of breath or wheezing) Qty: 1 0RF
prednisone 10 mg Tablet
See Rx Instructions .ROUTE .COMPLEX Qty: 30 0RF
Rx Instructions:
Take By Mouth:
40 mg daily x3 days, 30 mg daily x3 days,
20 mg daily x3 days, 10 mg daily x3 days.
gabapentin
100 mg PO TID
sulfamethoxazole-trimethoprim [Bactrim DS] 800-160 mg tablet
1 tab PO BID Qty: 14 0RF
cyclobenzaprine 10 mg tablet
10 mg PO TID PRN (Reason: low back/buttock pain) Qty: 30 0RF
ondansetron 4 mg tablet,disintegrating
4 mg PO Q8H PRN (Reason: nausea and vomiting) 5 Days Qty: 10 0RF
ondansetron 4 mg tablet,disintegrating
4 mg PO Q8H PRN (Reason: nausea and vomiting) 2 Days Qty: 6 0RF
dicyclomine 10 mg capsule
10 mg PO QID PRN (Reason: abdominal pain) Qty: 30 0RF
Referrals:
Cammie Canas MD [Family Provider] - Follow up in 5-7 days
Activity Restrictions/Additional Instructions:
Thank you for visiting the Emergency Department at [facility].
1. Please schedule a follow up appointment as directed. Call first thing tomorrow morning to make an appointment.
2. If indicated, please take your medications as instructed and indicated on discharge paperwork.
3. If any of your symptoms do not improve, or persist, or become more severe within 6-12 hours, please return to the emergency department for further care.
4. Please return to the emergency department if you develop a headache, neck pain/stiffness, fever greater than 100.4F, chest pain, shortness of breath, persistent nausea, vomiting, slurred speech, difficulty walking, numbness/tingling, weakness,
signs of infection or any other symptoms that are worrisome to you.
Please call [phone] if you have any questions.
Interventions
Interventions:
*Risk Screen - Suicide Last Done: 12/10/23 20:02
*General Assessment Last Done: 12/10/23 20:02
*Neglect/Abuse Screening Last Done: 12/10/23 20:02
ED-Skin Assessment Last Done: 12/10/23 22:10
Discharge Date and Time
Print Language: [id number]
[2023-12-10] MEDS: KEFLEX 500 MG PO (22:17)
[2023-12-10 22:20] VITALS: BP 134/69
[2023-12-10] MEDS: NIZORAL 2% CREAM 1 APPLIC TOPICAL (22:48)
[2023-12-10 22:53] VITALS: BP 134/69
== END 2023-12-10 22:55 | disposition home or self-care (01) ==
LOC: EMR 20:00
PROVIDERS: EMERGENCY PHYSICIAN Emergency Medicine; FAMILY PHYSICIAN Family Medicine
DX: L30.4 Erythema intertrigo (principal); R20.8 Other disturbances of skin sensation; E66.9 Obesity, unspecified; K21.9 Gastro-esophageal reflux disease without esophagitis; E78.00 Pure hypercholesterolemia, unspecified; F41.9 Anxiety disorder, unspecified; F32.A Depression, unspecified; I10 Essential (primary) hypertension; J44.89 Other specified chronic obstructive pulmonary disease; F17.200 Nicotine dependence, unspecified, uncomplicated; Z91.51 Personal history of suicidal behavior; Z88.1 Allergy status to other antibiotic agents; Z88.5 Allergy status to narcotic agent; Z88.0 Allergy status to penicillin; Z88.8 Allergy status to other drugs, medicaments and biological substances
CPT/HCPCS: 99283

== ENCOUNTER 2024-10-19 12:34 | Emergency (ER) | payer OTHER, MEDICARE, SELFPAY ==
[2024-10-19 12:41] VITALS: BP 142/96
[2024-10-19 13:07] LABS: % Basophils 0.3 % (0-2); % Eosinophils 0.2 % (0-6); % Immature Granulocytes 0.6 % (0-0.5); % Lymphocytes 11.2 % (20.5-51.1); % Monocytes 6.6 % (1.7-9.3); % Neutrophils 81.1 % (42.2-75.2); Absolute Immature Granulocytes 0.1 10^3/uL (0-0.05); Absolute Lymphocytes 1.5 10^3/uL (1.2-3.4); Absolute Monocytes 0.9 10^3/uL (0.1-0.6); Absolute Neutrophils 10.6 10^3/uL (1.4-6.5); Hemoglobin 9.4 g/dL (12.0-16.0); Mean Corp Hgb Conc. 27.6 g/dL (33.0-37.0); Mean Corpuscular Hgb 17.5 pg (27.0-31.0); Mean Corpuscular Volume 63.3 fL (81.0-99.0); Mean Platelet Volume 9.3 fL (7.4-10.4); Nucleated Red Blood Cells % 0 %; Platelet Count 281 10^3/uL (130-400); Red Blood Cell Count 5.37 10^6/uL (4.20-5.40); Red Cell Dist. Width 19.9 % (11.5-14.5); White Blood Cell Count 13.1 10^3/uL (4.8-10.8)
[2024-10-19 13:26] LABS: ALT (SGPT) 17 U/L (0-35); AST (SGOT) 18 U/L (14-36); Albumin 3.9 g/dl (3.5-5.0); Alkaline Phosphatase 100 U/L (38-126); Blood Urea Nitrogen 10 mg/dl (7-17); Calcium 9.3 mg/dl (8.4-10.2); Carbon Dioxide 24 mmol/L (22-30); Chloride 105 mmol/L (98-107); Glucose 163 mg/dl (70-99); Potassium 3.9 mmol/L (3.5-5.1); Sodium 138 mmol/L (135-145); Total Bilirubin 0.4 mg/dl (0.2-1.3); Total Protein 6.6 g/dl (6.3-8.2); eGFR > 60.00
--- NOTE | 2024-10-19 15:08 | ED.GENMED ---
History of Present Illness
General
Chief Complaint: Cold/Flu/URI Symptoms
Source: patient
Exam Limitations: none
Time Seen by Provider: 10/19/24 15:06
Nursing documentation reviewed up to this point in time: agreed with
History of Present Illness
History of Present Illness:
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
04/2024. Has had no problem since until last night when she got sudden onset right side neck and posterior headache 02/10. States it feels like when her previous shunts were clogged. Denies change in vision, felt nauseous earlier today with one
episode of dry heaves, denies nausea now. Denies weakness, numbness.
Also here for cough, finished Zpack and on day 3 of Prednisone taper with no improvement. Denies fever/chills. She is a smoker.
Past History
Past History
ED Past Medical History: Asthma, COPD, GERD, HTN, Hypercholesterolemia, Psychiatric (anxiety and depression. Suicide attempt by overdose of medications 06/2018), Other (Pseudotumor cerebrii with 2 shunts, previous shunt removal due to Meningitis.
Tachycardia, inappropriate tachycardia,) and Other (Chronic headache,)
ED Past Surgical History: Brain (shunt-removed) and Gynecological (Hysterectomy)
Patient has exhibited threatening behavior?: No
PSI?: No
Social History
Tobacco: Smoker
Alcohol: None
Drug: Marijuana
Personal:
Living: with family
Employment: Not employed
Family History
Family History: Other (Mother with uterine cancer)
Review of Systems
Review of Systems
Allergies reviewed?: Yes
All Other Systems: ROS reviewed and negative except as documented in HPI and ROS
Constitutional: Denies fever or chills
Respiratory: Reports cough; Denies trouble breathing
Cardiac: Denies chest pain
ABD/GI: Denies abdominal pain, nausea, vomiting or diarrhea
Musculoskeletal: Reports no symptoms
Skin: Reports no symptoms
Neurological: Reports headache; Denies dizzy, weakness or numbness
Phy Exam
Physical Exam
Physical Exam:
GENERAL: No acute distress. A&Ox3.
CONSTITUTIONAL: Afebrile.
EYES: clear, conjunctivae normal
ENMT: moist mucus membranes, Pharynx nl
RESPIRATORY: Regular respirations, nonlabored, coarse junky cough, nonproductive, lungs with expiratory wheezes throughout.
CARDIOVASCULAR: Regular rate and rhythm, no murmurs, no rubs.
GI: Soft, nontender, normal BS
MUSCULOSKELETAL: Moves with ease. Well perfused.
SKIN: Warm, dry, pink
PSYCH: Normal mood and affect. Well kept, interactive and appropriate
NEUROLOGIC: Awake, alert and oriented. Speech clear, cranial nerves II through XII intact. Ambulates well with steady gait. No focal neurological deficits
Course
Orders/Labs/Results
Orders:
Orders
10/19/24 12:45
Electrocardiogram (*1) Urgent
Reason for Study: Tachycardia
EKG- Treatment ONCE
10/19/24 12:55
Complete Blood Count/With Diff Urgent
Comprehensive Metabolic Panel Urgent
10/19/24 16:03
Ipratropium/Albuterol Sulfate [Duoneb] 3 ml INH R NOW STA
10/19/24 16:04
CR Chest - 2 Views Urgent
Comment:
Reason For Exam: cough, wheezing
10/19/24 16:11
Skull < 4 Views CR [CR Skull < 4 Views] Urgent
Comment:
Reason For Exam: Right SHADOWGRAPH OPERATOR shunt series
10/19/24 16:31
CR Abdomen - 2 Views Urgent
Reason For Exam: SHUNT SERIES
Abnormal Lab Results
10/19/24
12:55
WBC 13.1 H 10^3/uL
(4.8-10.8)
Hgb 9.4 L g/dL
(12.0-16.0)
Hct 34.0 L %
(37.0-47.0)
MCV 63.3 L fL
(81.0-99.0)
MCH 17.5 L pg
(27.0-31.0)
MCHC 27.6 L g/dL
(33.0-37.0)
RDW 19.9 H %
(11.5-14.5)
Abs Immat Gran (auto) 0.1 H 10^3/uL
(0-0.05)
Absolute Neuts (auto) 10.6 H 10^3/uL
(1.4-6.5)
Absolute Monos (auto) 0.9 H 10^3/uL
(0.1-0.6)
Immature Gran % 0.6 H %
(0-0.5)
Neutrophils % 81.1 H %
(42.2-75.2)
Lymphocytes % 11.2 L %
(20.5-51.1)
Glucose 163 H mg/dl
(70-99)
10/19/24 12:55
10/19/24 12:55
Vital Signs
Initial and Last Documented VS:
Initial Vital Signs
Temp Pulse Resp BP Pulse Ox
98.5 F 114 16 142/96 96
10/19/24 12:41 10/19/24 12:41 10/19/24 12:41 10/19/24 12:41 10/19/24 12:41
Last Documented Vital Signs
Temp Pulse Resp BP Pulse Ox
98.5 F 101 18 122/66 96
10/19/24 12:41 10/19/24 16:59 10/19/24 16:59 10/19/24 17:00 10/19/24 17:01
Lobster Fisherman consulted with Physician
Lobster Fisherman consulted with physician?: Yes
Name of Physician Consulted: Noh
MDM/Problems Addressed
Differential Diagnosis Includes:
Blocked SHADOWGRAPH OPERATOR shunt
Bronchitis, PNA, viral uri
MDM/Problems Addressed:
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
04/2024. Has had no problem since until last night when she got sudden onset right side neck and posterior headache 02/10. States it feels like when her previous shunts were clogged. Denies change in vision, felt nauseous earlier today with one
episode of dry heaves, denies nausea now. Denies weakness, numbness.
Also here for cough, finished Zpack and on day 3 of Prednisone taper with no improvement. Denies fever/chills. She is a smoker.
Afebrile, moderately uncomfortable with right neck pain 02/10
Neuro exam is normal
3:00 PM:
CBC: WBC 13.1
CMP: No clinically significant abnormality. Glucose 163 patient on prednisone.
5:00 PM:
Shunt study radiology report reviewed: IMPRESSION:
No depressed calvarial fracture. There is a left frontal and the right occipital approach ventriculoperitoneal shunt. The shunts appear contiguous throughout their visualized course without evidence of catheter fracture. The settings are difficult
to determine although likely in the proximal and 9:00 position (Bannerman Certas 4). There are bilateral transverse/sigmoid sinus stents. Visualized paranasal sinuses and mastoid air cells are grossly clear. Soft tissues are grossly unremarkable.
Edentulous.
10 as part of the shunt study
Abdominal film as part of the shunt series radiology report reviewed: Nonobstructive bowel gas pattern.
The ventriculoperitoneal shunt catheters are not definitely visualized on this examination.
Copies of results provided to patient
Chest x-ray: No acute disease
Plan:Continue prednisone taper. Albuterol inhaler. Stop smoking discussed
Pt will f/u with her neurologist. States pain mainly in her neck, 'not that bad' declines when pain med offered. She is asking to go home.
*EKG
EKG Intrepretation Date: 10/19/24
Interpretation: abnormal
Heart Rate: 112
Rate: tachycardiac
Rhythm: sinus
Mona: normal axis
Interval: normal interval
QRS Pattern: normal QRS
Ischemia: no ischemia
*Critical Care Note
Total Time (30-74mins, 75-104mins- exclusive of procedures): Not Applicable
ED Attending Note
-
Portions of this chart may have been created with voice recognition software.� Occasional wrong word or��sound alike� substitutions may have occurred due to the inherent limitations of voice recognition software.
Discharge Plan
Departure
Patient Disposition: Home (Routine Discharge)
Date of Disposition: 10/19/24
Time of Disposition: 17:17
Patient with high blood pressure during this ER visit?: No
Condition: Fair
Discharge Problem:
Bronchitis, Acute neck pain
Instructions: Neck pain, Acute Bronchitis, Adult (DC)
Prescriptions:
No Action
omeprazole 40 MG capsule,delayed release(DR/EC)
40 mg PO DAILY Qty: 0 0RF
Rx Instructions:
One capsule by mouth once daily.
metoprolol succinate 25 MG tablet extended release 24 hr
25 mg PO DAILY@1200 Qty: 0 0RF
Rx Instructions:
One tab by mouth once daily.
duloxetine 60 MG capsule,delayed release(DR/EC)
60 mg PO BID Qty: 0 0RF
Rx Instructions:
One capsule by mouth twice daily.
Vraylar 1.5 MG capsule
3 mg PO DAILY
clonazepam 0.5 MG tablet
0.5 mg PO BIDPRN PRN (Reason: Anxiety)
Patient Comments:
lamotrigine [Lamictal] 150 MG tablet
150 mg PO DAILY
benztropine 1 MG tablet
2 mg PO DAILY
metaxalone [Skelaxin] 800 MG tablet
800 mg PO TIDPRN PRN (Reason: pain) Qty: 10 0RF
fluticasone propionate [Flovent HFA] 1 PUFF HFA aerosol inhaler
2 puff inhalation R BID Qty: 1 0RF
albuterol sulfate 90 mcg/actuation aerosol powdr breath activated
2 inh inhalation Q6H PRN (Reason: shortness of breath or wheezing) Qty: 1 0RF
prednisone 10 mg Tablet
See Rx Instructions .ROUTE .COMPLEX Qty: 30 0RF
Rx Instructions:
Take By Mouth:
40 mg daily x3 days, 30 mg daily x3 days,
20 mg daily x3 days, 10 mg daily x3 days.
gabapentin
100 mg PO TID
sulfamethoxazole-trimethoprim [Bactrim DS] 800-160 mg tablet
1 tab PO BID Qty: 14 0RF
cyclobenzaprine 10 mg tablet
10 mg PO TID PRN (Reason: low back/buttock pain) Qty: 30 0RF
ondansetron 4 mg tablet,disintegrating
4 mg PO Q8H PRN (Reason: nausea and vomiting) 5 Days Qty: 10 0RF
ondansetron 4 mg tablet,disintegrating
4 mg PO Q8H PRN (Reason: nausea and vomiting) 2 Days Qty: 6 0RF
dicyclomine 10 mg capsule
10 mg PO QID PRN (Reason: abdominal pain) Qty: 30 0RF
ketoconazole 2 % cream
1 applic topical DAILY Qty: 60 0RF
cephalexin 500 mg tablet
500 mg PO QID 7 Days Qty: 28 0RF
Referrals:
NONE,* [Active] -
Interventions
Interventions:
*Risk Screen - Suicide Last Done: 10/19/24 15:31
*General Assessment Last Done: 10/19/24 15:30
*Neglect/Abuse Screening Last Done: 10/19/24 15:31
*ED- Fall Risk Assessment Last Done: 10/19/24 15:30
*ED COVID-19 Vaccine History Last Done: 10/19/24 15:30
*Nursing Disposition Last Done: 10/19/24 17:20
ED- Pulmonary Assessment Last Done: 10/19/24 15:35
Discharge Date and Time
Discharge Date/Time: 10/19/24 17:20
Print Language: GIBRALTARIAN
[2024-10-19 15:30] VITALS: BMI 45.1
[2024-10-19 15:34] VITALS: BP 124/83
--- NOTE | 2024-10-19 15:48 | EDRN ---
Pt has had no BMs since this RN assumed care of pt at 11:00.
--- NOTE | 2024-10-19 15:55 | EDRN ---
Neda Alicea Day in room w/ pt. Pt was on light c/o of increased pain in neck.
[2024-10-19 16:00] VITALS: BP 143/73
[2024-10-19] MEDS: DUONEB 3 ML INH (16:56)
[2024-10-19 16:59] VITALS: BP 122/66
[2024-10-19 17:00] VITALS: BP 122/66
--- NOTE | 2024-10-19 17:20 | EDRN ---
This RN met pt in HW as she was walking out of ED. This pt greeted RN that she was leaving. This RN asked if she had her paperwork and pt said yes. Pt's paperwork found at this RN's station w/ I. Chantal TEIXEIRA TT'd if okay pt only received verbal
discharge info. No response from Chantal as of yet as she just left at that time.
== END 2024-10-19 17:20 | disposition home or self-care (01) ==
LOC: EMR 12:34
PROVIDERS: Emergency Medicine; EMERGENCY PHYSICIAN Emergency Medicine; FAMILY PHYSICIAN Family Medicine
DX: J20.9 Acute bronchitis, unspecified (principal); M54.2 Cervicalgia; F41.8 Other specified anxiety disorders; E78.00 Pure hypercholesterolemia, unspecified; I10 Essential (primary) hypertension; F31.9 Bipolar disorder, unspecified; J44.0 Chronic obstructive pulmonary disease with (acute) lower respiratory infection; F17.200 Nicotine dependence, unspecified, uncomplicated; Z86.61 Personal history of infections of the central nervous system; Z90.710 Acquired absence of both cervix and uterus; Z91.51 Personal history of suicidal behavior; Z98.2 Presence of cerebrospinal fluid drainage device
CPT/HCPCS: 99283; 94640; 70250; 71046; 74019; 80053; 85025; 93005